=== PATIENT | female | born 1945 | race Caucasian/White ===

== ENCOUNTER → 2016-08-18 | Outpatient (CLI) | payer OTHER ==
--- NOTE | 2016-08-21 08:36 | DI ---
CT bone densitometry of the spine and hip Clinical history: Screening examination Prior study: None here. Procedure: 3D quantitative CT bone mineral densitometry The axial images for data acquisition do demonstrate a large nonobstructing stone lower pole left kid ant, 5.9 mm and round; image 42/65. Lumbar spondylosis with anterolisthesis of L4 relative to L5, vas cular calcification of the aorta maximum sagittal diameter of 2.5 cm. Low-dose scan through L1 and L2 demonstrate an average bone mineral density of 62.9 mg per mL corresp onding to a volumetric T score of a -4.06 and a correlative Z score of -0.97 The left femur average bone mineral density for the femoral neck is 0.612, trochanter 0.508 in the in tertrochanteric area 0.715, aggregate 0.626 with a T score of -2.55 and a Z score of -1.03. Impression: Both lumbar and left femoral values clearly indicate osteoporosis. Therefore s measures t o augment bone mineral density should be considered with a repeat bone mineral density examination pe rformed in 12 months Moderate-sized but nonobstructing left renal stone. Left renal size is smaller than right, possibly d ue to chronic pyelonephritis. Lumbar degenerative disc disease and vascular calcification of the aorta observed
== END ==
LOC: CT 07:14
PROVIDERS: ATTEND Family Medicine
DX: Z78.0 Asymptomatic menopausal state (principal); Z13.820 Encounter for screening for osteoporosis
CPT/HCPCS: 77078